=== PATIENT | male | born 1995 | race Caucasian/White ===

== ENCOUNTER 2024-06-19 14:11 | Emergency (ER) | payer BC, SELFPAY ==
[2024-06-19 14:13] VITALS: BP 135/84
[2024-06-19 14:26] VITALS: BMI 22.9
[2024-06-19 14:36] LABS: % Eosinophils 2.1 % (0-6); % Immature Granulocytes 0.3 % (0-0.5); % Lymphocytes 28.3 % (20.5-51.1); % Monocytes 8.3 % (1.7-9.3); Absolute Basophils 0.1 10^3/uL (0-0.2); Absolute Eosinophils 0.2 10^3/uL (0-0.7); Absolute Lymphocytes 2.9 10^3/uL (1.2-3.4); Absolute Monocytes 0.9 10^3/uL (0.1-0.6); Absolute Neutrophils 6.2 10^3/uL (1.4-6.5); Hematocrit 40.5 % (39.0-52.0); Hemoglobin 14.6 g/dL (13.0-18.0); Mean Corpuscular Hgb 29.7 pg (27.0-31.0); Mean Corpuscular Volume 82.5 fL (80.0-94.0); Mean Platelet Volume 9.3 fL (7.4-10.4); Nucleated Red Blood Cells % 0.2 % (-); Platelet Count 368 10^3/uL (130-400); Red Blood Cell Count 4.91 10^6/uL (4.70-6.10); Red Cell Dist. Width 12.7 % (11.5-14.5); White Blood Cell Count 10.2 10^3/uL (4.8-10.8)
[2024-06-19 14:48] LABS: Blood Urea Nitrogen 20 mg/dl (9-20); Carbon Dioxide 27 mmol/L (22-30); Chloride 107 mmol/L (98-107); Estimated Creatinine Clearance 90 ml/min; Glucose 120 mg/dl (70-99); Potassium 4.1 mmol/L (3.5-5.1); Sodium 143 mmol/L (135-145); eGFR > 60.00
[2024-06-19] MEDS: DILAUDID 0.5 MG IV ×2 (15:01→16:19)
--- NOTE | 2024-06-19 15:08 | ED.GENMED ---
History of Present Illness
General
Chief Complaint: Facial Problem
Source: patient
Time Seen by Provider: 06/19/24 14:54
History of Present Illness
History of Present Illness:
29-year-old male with past medical history of migraines presenting to the ER via EMS after he was shooting gomez pigeons when the spring-loaded mechanism hit him directly in the anterior part of his face, bilateral nare epistaxis and significant pain
within this area. There was no reported loss consciousness, visual changes, vomiting or any other injury sustained. Tetanus vaccine is up-to-date. Patient still noting considerable pain at time of my exam. Did not receive any medications prior
to arrival.
Past History
Past History
ED Past Medical History: Asthma (Sports induced)
ED Past Surgical History: Other (Inginal hernia)
Social History
Tobacco: Former smoker
Alcohol: None
Drug: None
Personal: Single
Living: with family
Review of Systems
Review of Systems
All Other Systems: ROS reviewed and negative except as documented in HPI and ROS
Phy Exam
Physical Exam
Physical Exam:
GENERAL: Alert , in no apparent distress
EYE: conjunctiva clear, pupils 4 mm bilateral
Head: Normocephalic atraumatic
NECK: Supple, no midline tenderness
ENT: There is significant edema to the nasal bridge, more so extending into the left maxillary region with tenderness directly in this area. Dried blood to bilateral nare. mmm. Patient able to masticate without difficulty. No dental fractures
appreciated. No intraoral lacerations. Posterior oropharynx without any signs of trauma or bleeding. No tenderness over the mandible
LUNGS: no acute respiratory distress
NEUROLOGICAL: Alert and oriented
SKIN: Warm and dry, skin intact.
MUSCULOSKELETAL: well perfused.
PSYCH: Normal and appropriate interaction.
Scores
Heart Failure Risk
Heart Failure Risk Score: Not Applicable
Heart Score for Chest Pain Patients
STEMI patient?: Not applicable
Withdrawal Assessment of Alcohol
Withdrawal Assessment Completed?: Not applicable
Course
Orders/Labs/Results
Orders:
Orders
06/19/24 14:28
BMP [Basic Metabolic Panel] Urgent
Complete Blood Count/With Diff Urgent
06/19/24 14:54
CT Facial Bones W/o Iv Contras Urgent
Comment:
Reason For Exam: facial injury
CT Head W/o Iv Contrast Urgent
Comment:
Reason For Exam: Facial injury
06/19/24 14:58
CT Cervical Spine W/o Iv Contr Urgent
Comment:
Reason For Exam: facial trauma
HYDROmorphone [Dilaudid] 0.5 mg IV NOW STA
06/19/24 16:17
HYDROmorphone [Dilaudid] 0.5 mg IV NOW STA
Abnormal Lab Results
06/19/24
14:28
Absolute Monos (auto) 0.9 H 10^3/uL
(0.1-0.6)
Glucose 120 H mg/dl
(70-99)
06/19/24 14:28
06/19/24 14:28
Vital Signs
Initial and Last Documented VS:
Initial Vital Signs
Temp Pulse Resp BP Pulse Ox
98.2 F 78 16 135/84 98
06/19/24 14:13 06/19/24 14:13 06/19/24 14:13 06/19/24 14:13 06/19/24 14:13
Last Documented Vital Signs
Temp Pulse Resp BP Pulse Ox
98.2 F 78 16 135/84 98
06/19/24 14:13 06/19/24 14:13 06/19/24 14:13 06/19/24 14:13 06/19/24 14:13
MDM/Problems Addressed
Differential Diagnosis Includes:
Facial fractures, concussion, intracranial bleeding
MDM/Problems Addressed:
29-year-old male presenting to the ER for significant facial trauma resulting in significant edema to the nasal bridge. Suspect at minimum patient has a nasal bone fracture. CT of the facial bones, head and cervical spine ordered. Half milligram
of Dilaudid ordered for pain control. Disposition pending.
*Radiology
Radiology exam reviewed: radiology read reviewed
*Pulse Oximetry
Patient hypoxic: no
*Critical Care Note
Total Time (30-74mins, 75-104mins- exclusive of procedures): Not Applicable
Patient Management
Escalation/DeEscalation of care consider admission/obs:
Patient CT scan shows a nasal bone and nasal septum fracture. No other injuries or intracranial pathologies identified. Patient feels comfortable being discharged home. Ear nose and throat information provided. Nasal fracture precautions
discussed. Prescription for Percocet sent to patient's pharmacy for pain control. Advised patient to try and stay elevated upright to help with swelling and bruising. Patient aware of return precautions to the ER and otherwise stable for
discharge home.
ED Attending Note
-
Portions of this chart may have been created with voice recognition software.� Occasional wrong word or��sound alike� substitutions may have occurred due to the inherent limitations of voice recognition software.
Discharge Plan
Departure
Patient Disposition: Home (Routine Discharge)
Date of Disposition: 06/19/24
Time of Disposition: 17:19
Patient with high blood pressure during this ER visit?: No
Discharge Problem:
Fracture of nasal bone, Fracture of nasal septum
Instructions: Nose fracture
Prescriptions:
New
oxycodone-acetaminophen [Percocet] 5-325 mg tablet
1 tab PO Q6HPRN PRN (Reason: pain) Qty: 10 0RF
Referrals:
NONE,* [Family Provider] -
Yasmin Amor MD [Active] -
(ENT - Please call for appointment
)
Interventions
Interventions:
*Risk Screen - Suicide Last Done: 06/19/24 14:13
*General Assessment Last Done: 06/19/24 15:12
*Neglect/Abuse Screening Last Done: 06/19/24 14:13
*ED- Fall Risk Assessment Last Done: 06/19/24 15:12
ED- Neurological Assessment Last Done: 06/19/24 14:25
ED-Skin Assessment Last Done: 06/19/24 14:25
Discharge Date and Time
Print Language: INDONESIAN
== END 2024-06-19 17:48 | disposition home or self-care (01) ==
LOC: EMR 14:11
PROVIDERS: EMERGENCY PHYSICIAN Student in an Organized Health Care Education/Training Program
DX: S02.2XXA Fracture of nasal bones, initial encounter for closed fracture (principal); W20.8XXA Other cause of strike by thrown, projected or falling object, initial encounter; J45.909 Unspecified asthma, uncomplicated; Z87.891 Personal history of nicotine dependence
CPT/HCPCS: 99284; 96374; 96375; 70450; 70486; 72125; 80048; 85025